=== PATIENT | male | born 1995 | race African-American/Black ===

== ENCOUNTER 2017-12-25 23:49 | Emergency (ER) | payer OTHER ==
--- NOTE | 2017-12-26 00:14 | PDOC ---
History of Present Illness - General Stated Complaint: ABD/GROIN PAIN Time Seen by Provider: 12/26/17 00:13 - History of Present Illness Initial Comments: 12/26/17 00:13 Mr. Alves is a 22 yo male w/ no pmh who presents for evaluation of 1 day history of left sided testicular and abdominal pain. He reports he was eating cashews around 7pm and that his symptoms started following this. He denies any associated symptoms including nausea or vomiting. He has urinated successfully since this pain started however reports it was painful. Has not had any discharge. The patient denies chest pain, shortness of breath, headache and dizziness. Denies fever, chills, diarrhea and constipation. Denies dysuria, frequency, urgency and hematuria. Allergies: NKDA Past History - Past Medical History Allergies/Adverse Reactions: Allergies Allergy/AdvReac Type Severity Reaction Status Date / Time No Known Allergies Allergy Verified 09/15/15 19:17 Home Medications: Ambulatory Orders Quetiapine Fumarate [Seroquel -] 25 mg PO HS #20 tablet 09/12/15 Quetiapine Fumarate [Seroquel -] 100 mg PO HS #30 tab 09/25/15 Anemia: No Asthma: No Cancer: No Cardiac Disorders: No CVA: No COPD: No CHF: No Dementia: No Diabetes: No GI Disorders: No Disorders: No HTN: No Hypercholesterolemia: No Kidney Stones: No Liver Disease: No Seizures: Yes (6 YEARS AGO UNKNOWN ORIGIN) Thyroid Disease: No - Surgical History Abdominal Surgery: No Appendectomy: No Cardiac Surgery: No Cholecystectomy: No Lung Surgery: No Neurologic Surgery: No Orthopedic Surgery: Yes (5th metacarpal surgery) - Reproductive History Testicular Surgery: No - Suicide/Smoking/Psychosocial Hx Smoking Status: No Smoking History: Current every day smoker Number of Cigarettes Smoked Daily: 2 Cigars Per Day: 0 'Breaking Loose' booklet given: 09/15/15 Hx Alcohol Use: Yes (hard liquor on weekends) Drug/Substance Use Hx: Yes Substance Use Type: Marijuana (daily use) Hx Substance Use Treatment: Yes ([facility]) Review of Systems - Review of Systems Comments:: 12/26/17 00:14 GENERAL/CONSTITUTIONAL: No fever or chills. No weakness. HEAD, EYES, EARS, NOSE AND THROAT: No change in vision. No ear pain or discharge. No sore throat. CARDIOVASCULAR: No chest pain or shortness of breath RESPIRATORY: No cough, wheezing, or hemoptysis. GASTROINTESTINAL: +Midline abdominal pain. No nausea, vomiting, diarrhea or constipation. GENITOURINARY: +Left sided testicular pain. Increased testicular pain while urinating. MUSCULOSKELETAL: No joint or muscle swelling or pain. No neck or back pain. SKIN: No rash NEUROLOGIC: No headache, vertigo, loss of consciousness, or change in strength/ sensation. ENDOCRINE: No increased thirst. No abnormal weight change HEMATOLOGIC/LYMPHATIC: No anemia, easy bleeding, or history of blood clots. ALLERGIC/IMMUNOLOGIC: No hives or skin allergy. *Physical Exam - Physical Exam Comments: 12/26/17 00:14 GENERAL: Awake, alert, and fully oriented, in no acute distress HEAD: No signs of trauma, normocephalic, atraumatic EYES: PERRLA, EOMI, sclera anicteric, conjunctiva clear ENT: Auricles normal inspection, hearing grossly normal, nares patent, oropharynx clear without exudates. Moist mucosa NECK: Normal ROM, supple, no lymphadenopathy, JVD, or masses LUNGS: No distress, speaks full sentences, clear to auscultation bilaterally HEART: Regular rate and rhythm, normal S1 and S2, no murmurs, rubs or gallops, peripheral pulses normal and equal bilaterally. ABDOMEN: +Midline lower abdominal tenderness. Soft, normoactive bowel sounds. No guarding, no rebound. No masses EXTREMITIES: Normal inspection, Normal range of motion, no edema. No clubbing or cyanosis. NEUROLOGICAL: Cranial nerves II through XII grossly intact. Normal speech, normal gait, no focal sensorimotor deficits SKIN: Warm, Dry, normal turgor, no rashes or lesions noted. : Left testicular tenderness to manipulation. Normal cremasteric reflex on right and left side. ED Treatment Course - LABORATORY CBC & Chemistry Diagram: 12/26/17 01:24 12/26/17 01:24 Medical Decision Making - Medical Decision Making 12/26/17 01:33 Mr. Alves is a 22 yo male w/ pmh as described who presents for evaluation of scrotal and abdominal pain x1 day. 12/26/17 01:39 US negative for torsion. CT abdomen / pelvis ordered for further evaluation. 12/26/17 03:43 CT abdomen/pelvis negative for acute process. Patient currently resting comfortably and will follow-up with urology for further evaluation. Discharging to home. *DC/Admit/Observation/Transfer Diagnosis at time of Disposition: Testicle pain - Discharge Dispostion Disposition: HOME - Referrals Referrals: Lenore Mccain MD [Primary Care Provider] - Branden Tejada MD [Staff Physician] - - Patient Instructions Printed Discharge Instructions: Testicular Torsion Additional Instructions: Please follow-up with primary care physician and urologist tomorrow. Return to ER if any return/increase of pain, fever, chills, or other concerning symptoms. - Post Discharge Activity
[2017-12-26 00:36] VITALS: BP 116/88; BMI 26.6
[2017-12-26] MEDS ORDERED: ACETAMINOPHEN 500 MG TABLET (FP) PO ONE (01:00)
--- NOTE | 2017-12-26 01:23 | PDOC ---
Attending Attestation - Resident Resident Name: Zi Whitman - ED Attending Attestation I have performed the following: I have examined & evaluated the patient, The case was reviewed & discussed with the resident, I agree w/resident's findings & plan, Exceptions are as noted - HPI HPI: 12/26/17 06:20 Patient is a 22 year old male with no significant past medical history who presents to the ED with complaints of left sided testicular pain that began 1 day ago. Patient reports he was eating cashews yesterday evening at 7pm when he noticed the L testicular pain. Reports pain is constant and dull. Denies waxing and waning quality of pain. He reports experiencing associated symptoms of mid suprapubic abdominal pain. Patient reports pain increases with urination. Has not noticed any masses in his groin or belly. Last BM today was normal. Denies trauma. Denies penile pain or DC. Reports he has protected sex with only one partner. Denies urinary frequency, hesitation, urgency. Denies chest pain, Sob. Denies nausea, vomiting. Denies contact with sick individuals, out of state travelling. Denies fevers, chills. Denies diarrhea, constipation. Denies any other symptoms. Allergies: None Social history: No smoking, No alcohol. No illicit drugs. Surgical history: None PMD: Dr. Mccain - Physicial Exam PE: 12/26/17 06:20 GENERAL: Awake, alert, and fully oriented, in no acute distress ENT: Auricles normal inspection, hearing grossly normal, nares patent, oropharynx clear without exudates. Moist mucosa LUNGS: Breath sounds equal, clear to auscultation bilaterally. No wheezes, and no crackles HEART: Regular rate and rhythm, normal S1 and S2, no murmurs, rubs or gallops ABDOMEN: Soft, mild suprapubic ttp, normoactive bowel sounds. No guarding, no rebound. No masses : b/l testicles descended. Mild ttp of L testicle. No focal tenderness over epididymis. B/l testicles with normal lie, no elevation, and with normal cremasteric reflex. Penis normal with no discharge or lesions. EXTREMITIES: Normal range of motion, no edema. No clubbing or cyanosis. No cords, erythema, or tenderness NEUROLOGICAL: Normal speech, cranial nerves intact, negative pronator drift, 5/ 5 strength in all 4 extremities, normal sensation to light touch in all 4 extremities, normal cerebellar exam SKIN: Warm, Dry, normal turgor, no rashes or lesions noted. - Medical Decision Making 12/26/17 06:25 22yo M presets to the ED with L testicle pain. Story not consistent with torsion as pt appears comfortable and pain is dull, constant, rather than sharp and waxing or waning. Labs/UA wnl. Pt declines STI testing. US with no acute findings. Given lower abd pain, CTAP was obtained which was also negative. Unclear etiology of symptoms but on re-evaluation, pt states he feels better. Does not appear to be having an acute problem requiring emergency care at this time. Will DC with urologist f/u. I discussed the physical exam findings, ancillary test results and final diagnoses with the patient. I answered all of the patient's questions. The patient was satisfied with the care received and felt comfortable with the discharge plan and treatment plan. The patient will call their primary care physician within 24 hours to arrange follow-up and will return to the Emergency Department with any new, persistent or worsening symptoms.
[2017-12-26 01:41] LABS: BASO % 0.8 % (0-2.0); EOS % 5.4 % (0-4.5); HEMATOCRIT 38.3 % (35.4-49); HEMOGLOBIN 12.9 GM/dL (11.7-16.9); LYMPH % 43.6 % (8-40); MCH 31.7 pg (25.7-33.7); MCHC 33.7 g/dl (32.0-35.9); MEAN PLT VOLUME 7.8 fl (7.5-11.1); MONO % 8.9 % (3.8-10.2); NEUT % 41.3 % (42.8-82.8); PLATELET COUNT 210 K/MM3 (134-434); RBC 4.07 M/mm3 (4.00-5.60); RDW 13.6 % (11.9-15.9); WHITE BLOOD COUNT 6.3 K/mm3 (4.0-10.0)
[2017-12-26 02:13] LABS: URINE APPEARANCE CLOUDY; URINE BILIRUBIN NEGATIVE (<2.0 mg/dL); URINE COLOR YELLOW; URINE GLUCOSE (UA) NEGATIVE (NEGATIVE); URINE KETONE NEGATIVE (NEGATIVE); URINE LEUK ESTERASE NEGATIVE (NEGATIVE); URINE NITRITE NEGATIVE (NEGATIVE)
[2017-12-26 02:14] LABS: URINE PROTEIN 1+ (NEGATIVE)
[2017-12-26 02:18] LABS: ALBUMIN 3.4 g/dl (3.4-5.0); ALK PHOS 62 U/L (45-117); ANION GAP 5 (8-16); BILIRUBIN,TOTAL 0.6 mg/dL (0.2-1.0); BLOOD UREA NITROGEN 15 mg/dL (7-18); CALCIUM 8.5 mg/dL (8.5-10.1); CHLORIDE 106 mmol/L (98-107); CO2 28 mmol/L (21-32); CREATININE 0.9 mg/dL (0.7-1.3); GLUCOSE,RANDOM 113 mg/dL (74-106); POTASSIUM 3.7 mmol/L (3.5-5.1); SGOT/AST 20 U/L (15-37); SGPT/ALT 21 U/L (12-78); SODIUM 139 mmol/L (136-145); TOT PROT 6.9 g/dl (6.4-8.2)
[2017-12-26 02:19] LABS: URINE BACTERIA RARE /hpf (NONE SEEN); URINE MUCUS RARE
[2017-12-26] MEDS ORDERED: ACETAMINOPHEN 325 MG TABLET (FP) ONE (03:23)
== END 2017-12-26 04:08 | disposition home or self-care (01) ==
LOC: JER 23:49
DX: N50.812 Left testicular pain (principal); F17.210 Nicotine dependence, cigarettes, uncomplicated; Z86.69 Personal history of other diseases of the nervous system and sense organs
CPT/HCPCS: 74177-TC; 76870-TC; 80053; 81003; 81015; 85025; 86850; 86900; 86901; 87086; 99281-25

== ENCOUNTER 2022-02-25 12:13 | Emergency (ER) | payer OTHER ==
[2022-02-25 12:19] VITALS: BP 109/66; PULSE 58; RESP 18; TEMP 97.9; BMI 20.5
[2022-02-25] MEDS ORDERED: SODIUM CHLORIDE 0.9% 500 ML INFUS.BAG IV ONE (13:20)
[2022-02-25] MEDS ORDERED: ONDANSETRON 4 MG/2 ML VIAL IVPUSH ONE (13:20)
[2022-02-25] MEDS ORDERED: ONDANSETRON 4 MG/2 ML VIAL ONE (13:33)
[2022-02-25 13:46] LABS: BASO % 0.2 % (0-2.0); EOS % 3.6 % (0-4.5); HEMATOCRIT 46.1 % (35.4-49); MCH 33.5 pg (25.7-33.7); MCHC 34.6 g/dl (32.0-35.9); MEAN CELL VOLUME 96.9 fl (80-96); MONO % 10.3 % (3.8-10.2); NEUT % 75.9 % (42.8-82.8); PLATELET COUNT 184 10^3/uL (134-434); RBC 4.76 M/mm3 (4.00-5.60); RDW 13.1 % (11.9-15.9); WHITE BLOOD COUNT 8.4 K/mm3 (4.0-10.0)
[2022-02-25 14:06] LABS: CALCIUM 10.1 mg/dL (8.5-10.1)
[2022-02-25 14:07] LABS: ALBUMIN 4.6 g/dl (3.4-5.0); BLOOD UREA NITROGEN 14.9 mg/dL (7-18)
[2022-02-25 14:10] LABS: CREATININE 0.9 mg/dL (0.55-1.3)
[2022-02-25 14:12] LABS: BILIRUBIN,TOTAL 1.5 mg/dL (0.2-1); TOT PROT 8.3 g/dl (6.4-8.2)
[2022-02-25] MEDS ORDERED: KETOROLAC TROMETHAMINE 30 MG/1 ML VIAL IVPB ONE (14:48)
[2022-02-25] MEDS ORDERED: KETOROLAC TROMETHAMINE 30 MG/1 ML VIAL ONE (14:53)
== END 2022-02-25 18:55 | disposition home or self-care (01) ==
LOC: JER 12:13
PROC: 3E0333Z Introduction of Anti-inflammatory into Peripheral Vein, Percutaneous Approach (ICD-10-PCS; principal; 2022-02-25)
PROC: 3E033GC Introduction of Other Therapeutic Substance into Peripheral Vein, Percutaneous Approach (ICD-10-PCS; 2022-02-25)
DX: R68.83 Chills (without fever) (principal); R10.9 Unspecified abdominal pain; R19.7 Diarrhea, unspecified
CPT/HCPCS: 0241U-QW; 36415; 71046-TC-FY; 80053; 83690; 84484; 85025; 93005; 93010; 99285-25